=== PATIENT | female | born 1955 | race Caucasian/White ===

== ENCOUNTER 2016-12-08 08:23 | Emergency (ER) | payer OTHER ==
[~2016-12-08] VITALS: Ht 172.7 cm; Wt 81.6 kg
[~2016-12-08 08:23] MED LIST: BIOT1TAB2 PO; CALC-30 PO; CYAN50008 PO; DIAZ10TA PO; GLUC1TAB29 PO; HYDR-971 PO; LEVO100T PO; LISI10TA2 PO; MULT1CAP15 PO; ONDA4TAB10 PO; UBID10CA5 PO
[2016-12-08] MEDS: IV NORMAL SALINE 1,000ML 1,000 ML IV ONE (08:45)
--- NOTE | 2016-12-08 08:52 | PHYS DOC ---
Past History Past Medical History: Cancer, Hypertension Past Surgical History: Cancer Surgery, Other Alcohol Use: Rarely Drug Use: None Adult General HPI HPI Patient is a 61 year old F who presents with left flank pain. Patient states she woke up this morning with severe left flank pain that radiated around to her left groin. Patient plans of nausea and vomiting. Patient denies fevers. Patient denies chest pain shortness of breath. Patient states she's been told in the past she has stones or kidney however has never had a true kidney stone. Review of Systems Review of Systems GEN: Denies fevers, chills, sweats HEENT: Denies blurred vision, sore throat CV: Denies chest pain RESP: Denies shortness of air, cough GI: Left flank pain with nausea and vomiting NEURO: Denies confusion, dizziness MSK: Denies weakness, joint pain/swelling Current Medications Current Medications Current Medications Medications (Trade) Dose Ordered Sig/Cleve Start Time Stop Time Status Last Admin Dose Admin Hydromorphone HCl (Dilaudid) 1 mg 1X ONCE 12/08/16 09:00 12/08/16 09:01 Ketorolac Tromethamine (Toradol) 30 mg 1X ONCE 12/08/16 09:00 12/08/16 09:01 Ondansetron HCl (Zofran) 4 mg 1X ONCE 12/08/16 08:45 12/08/16 08:46 UNV Sodium Chloride 1,000 ml @ 1,000 mls/hr 1X ONCE 12/08/16 08:45 12/08/16 09:44 Allergies Allergies Allergies Coded Allergies Type Severity Reaction Last Updated Verified acetaminophen Allergy Unknown 09/14/15 Yes fentanyl Allergy Unknown 09/14/15 Yes oxycodone Allergy Unknown 09/14/15 Yes Physical Exam Physical Exam GEN.: Moderate distress. Alert and oriented. HEENT: Head is normocephalic, atraumatic NECK: Supple. LUNGS: CTAB. HEART: RRR, S1, S2 present. Peripheral pulses intact ABDOMEN: Soft, left flank and left CVA tenderness to palpation. Positive bowel sounds. EXTREMITIES: Without any cyanosis. NEUROLOGIC: Normal speech, normal tone PSYCHIATRIC: Normal affect, normal mood. SKIN: No ulcerations Current Patient Data Lab Results Laboratory Tests Test 12/08/16 08:45 12/08/16 09:27 12/08/16 10:10 White Blood Count 5.4 x10^3/uL Red Blood Count 4.37 x10^6/uL Hemoglobin 13.9 g/dL Hematocrit 41.5 % Mean Corpuscular Volume 95 fL Mean Corpuscular Hemoglobin 32 pg Mean Corpuscular Hemoglobin Concent 34 g/dL Red Cell Distribution Width 12.8 % Platelet Count 190 x10^3/uL Neutrophils (%) (Auto) 65 % Lymphocytes (%) (Auto) 24 % Monocytes (%) (Auto) 8 % Eosinophils (%) (Auto) 2 % Basophils (%) (Auto) 1 % Neutrophils # (Auto) 3.5 x10^3uL Lymphocytes # (Auto) 1.3 x10^3/uL Monocytes # (Auto) 0.4 x10^3/uL Eosinophils # (Auto) 0.1 x10^3/uL Basophils # (Auto) 0.1 x10^3/uL Sodium Level 141 mmol/L Potassium Level 4.1 mmol/L Chloride Level 109 mmol/L Carbon Dioxide Level 21 mmol/L Anion Gap 11 Blood Urea Nitrogen 22 mg/dL Creatinine 1.0 mg/dL Estimated GFR (Cockcroft-Gault) 56.0 Glucose Level 125 mg/dL Calcium Level 8.4 mg/dL Urine Collection Type Unknown Urine Color Yellow Urine Clarity Hazy Urine pH 8.0 Urine Specific [place] 1.020 Urine Protein Neg Urine Glucose (UA) Neg mg/dL Urine Ketones (Stick) Trace mg/dL Urine Blood Trace Urine Nitrite Neg Urine Bilirubin Neg Urine Urobilinogen Dipstick 0.2 mg/dL Urine Leukocyte Esterase Neg Urine RBC 0 /HPF Urine WBC 0 /HPF Urine Squamous Epithelial Cells Occ /LPF Urine Transitional Epithelial Cells Occ /LPF Urine Amorphous Sediment Present /HPF Urine Bacteria 0 /HPF Current Medications Medications (Trade) Dose Ordered Sig/Cleve Route PRN Reason Start Time Stop Time Status Last Admin Dose Admin Sodium Chloride 1,000 ml @ 1,000 mls/hr 1X ONCE IV 12/08/16 08:45 12/08/16 09:44 DC 12/08/16 08:45 Ketorolac Tromethamine (Toradol) 30 mg 1X ONCE IV 12/08/16 09:00 12/08/16 09:01 DC 12/08/16 09:00 Hydromorphone HCl (Dilaudid) 1 mg 1X ONCE IV 12/08/16 09:00 8/2/17 09:01 DC 12/08/16 09:00 Ondansetron HCl (Zofran) 4 mg 1X ONCE IV 12/08/16 09:00 12/08/16 09:01 DC 12/08/16 09:00 EKG EKG [] Radiology/Procedures Radiology/Procedures CT: IMPRESSION: 1. Tiny obstructing calculus in the distal left ureter at the ureterovesical junction. 2. Small bilateral intrarenal calculi. 3. Bilateral renal and hepatic cysts. 4. Mildly prominent mesenteric lymph nodes of similar size compared to the study of 09/14/2015. These are probably reactive nodes.[] Course & Med Decision Making Course & Med Decision Making Pertinent Labs and Imaging studies reviewed. (See chart for details) ED course: Patient was seen and examined in the emergency room CBC, BMP, UA, CT scan without contrast, 30 mg of Toradol, 1 mg Dilaudid, 4 mg Zofran, 1 L normal saline was ordered 1030: On reexamination patient's pain was a 2 out of 10 and feeling much better , patient was updated on CT findings and told that if the pain does not resolve within 3 days to follow-up with PCP and she may need to see urologist. MDM: After reviewing the chart, CC/HPI/PMH, physical exam, [lab results], [ radiological results], I believe the patient has a small left ureteral calculus that is not septic in patient is stable be discharged home with oral pain medications and follow-up as an outpatient. Additional verbal discharge instructions were provided to the patient and that if symptoms get worse or any new symptoms arise that are worrisome to the patient she is to return to the emergency room immediately [] Dragon Disclaimer Dragon Disclaimer This chart was dictated in whole or in part using Voice Recognition software in a busy, high-work load, and often noisy Emergency Department environment. It may contain unintended and wholly unrecognized errors or omissions. Departure Departure: Impression: Primary Impression: Ureteral calculus, left Disposition: HOME, SELF-CARE Condition: IMPROVED Referrals: SIN MORTENSEN MD (PCP) Patient Instructions: Kidney Stones Additional Instructions: Please follow up with her family doctor next one to 2 days Scripts Ondansetron (ZOFRAN ODT) 4 Mg Tab.rapdis 1 TAB SL Q8HRS, #10 TAB Prov: JOSHUA FLOWERS DO 12/08/16 Tamsulosin Hcl (FLOMAX) 0.4 Mg Cap.er.24h 1 CAP PO DAILY for 5 Days, #5 CAP 11 Refills Prov: JOSHUA FLOWERS DO 12/08/16 Hydrocodone Bit/Acetaminophen (NORCO 5-325 TABLET) 1 Each Tablet 1-2 TAB PO Q4-6HRS Y for PAIN for 3 Days, #20 TAB Prov: JOSHUA FLOWERS DO 12/08/16 JOSHUA FLOWERS DO Dec 08, 2016 08:52
[2016-12-08] MEDS: KETOROLAC 30 MG/ML VIAL. IV ONE (09:00)
[2016-12-08] MEDS: HYDROmorphone PF 1 MG/ML DISP.SYRIN IV ONE ×2 (09:00→11:14)
[2016-12-08] MEDS: ONDANSETRON PF 4 MG/2 ML VIAL. IV ONE (09:00)
[2016-12-08 09:08] LABS: BASO # 0.1 x10^3/uL (0.0-0.2); BASO % 1 % (0-3); EOS # 0.1 x10^3/uL (0.0-0.7); EOS % 2 % (0-3); HEMATOCRIT 41.5 % (36.0-47.0); HEMOGLOBIN 13.9 g/dL (12.0-15.5); LYMPH # 1.3 x10^3/uL (1.0-4.8); LYMPH % 24 % (24-48); MEAN CORPUSCULAR HEMOGLOBIN 32 pg (25-35); MEAN CORPUSCULAR HGB CONC 34 g/dL (31-37); MEAN CORPUSCULAR VOLUME 95 fL (79-100); MONO # 0.4 x10^3/uL (0.0-1.1); MONO % 8 % (0-9); NEUT # 3.5 x10^3uL (1.8-7.7); NEUT % 65 % (31-73); PLATELET COUNT 190 x10^3/uL (140-400); RED BLOOD COUNT 4.37 x10^6/uL (3.50-5.40); RED CELL DISTRIBUTION WIDTH 12.8 % (11.5-14.5); WHITE BLOOD COUNT 5.4 x10^3/uL (4.0-11.0)
[2016-12-08 09:45] LABS: CALCIUM 8.4 mg/dL (8.5-10.1); POTASSIUM 4.1 mmol/L (3.5-5.1)
--- NOTE | 2016-12-08 09:48 | RAD ---
CT of the abdomen and pelvis without contrast, 12/08/2016: History: Left-sided flank pain. Noncontrast scans were obtained through the urinary tract utilizing the renal stone protocol. Comparison is made to a study from 09/14/2015. A couple of small intrarenal calculi are identified. The largest of which measures approximately 4 mm. A couple of faint intrarenal calculi are present on the right. There is a 2 cm cyst anteriorly in the right kidney. There are cystic areas centrally in both kidneys probably predominantly due to parapelvic renal cysts. The left ureter is mildly prominent. There is a 2 mm opacity along the posterior wall of the urinary bladder on the left compatible with a calculus lodged in the intramural segment of the distal left ureter. The right ureter is unremarkable. Numerous additional lower pelvic calcifications compatible with phleboliths. There is mild bibasilar atelectasis. Several small unchanged low density lesions in the liver are compatible with cysts. The gallbladder is unremarkable. No pancreatic abnormality is seen. The spleen is of normal size. There is mild aortoiliac calcific plaquing. No retroperitoneal, pelvic or inguinal adenopathy is seen. There are mildly prominent mesenteric lymph nodes. The largest of these lies on the left and measures 10 mm in short axis dimension. Similar findings were present on the previous study. Their stability suggests a benign etiology. The bowel loops are not dilated. The appendix is visualized and shows no abnormality. No free fluid or free air is evident in the abdomen or pelvis. There are mild scattered degenerative changes in the spine. IMPRESSION: 1. Tiny obstructing calculus in the distal left ureter at the ureterovesical junction. 2. Small bilateral intrarenal calculi. 3. Bilateral renal and hepatic cysts. 4. Mildly prominent mesenteric lymph nodes of similar size compared to the study of 09/14/2015. These are probably reactive nodes. PQRS Compliance Statement: One or more of the following individualized dose reduction techniques were utilized for this examination: 1. Automated exposure control 2. Adjustment of the mA and/or kV according to patient size 3. Use of iterative reconstruction technique
[2016-12-08] MEDS ORDERED: TAMS0.4C97 PO (10:15)
[2016-12-08] MEDS ORDERED: ONDA4TAB10 SL (10:15)
[2016-12-08] MEDS ORDERED: HYDR-971 PO (10:15)
[2016-12-08 10:30] LABS: AMORPHOUS SEDIMENT,UR PRESENT /HPF; BACTERIA,URINE 0 /HPF (0-FEW); BILIRUBIN,URINE NEG (NEG); CLARITY,URINE HAZY; COLOR,URINE YELLOW; GLUCOSE,URINE NEG (NEG); NITRITE,URINE NEG (NEG); RBC,URINE 0 /HPF (0-2); SQUAMOUS EPITHELIAL CELL,UR OCC /LPF; UROBILINOGEN,URINE 0.2 mg/dL (0.2 mg/dL); WBC,URINE 0 /HPF (0-4)
[2016-12-08] MEDS: ONDANSETRON ODT 4 MG TAB.RAPDIS PO ONE (11:33)
[2016-12-08 11:50] VITALS: BP 136/83
== END 2016-12-08 11:50 | disposition home or self-care (01) ==
LOC: ER 08:23
DX: N20.1 Calculus of ureter (principal); I10 Essential (primary) hypertension; Z88.6 Allergy status to analgesic agent; Z88.4 Allergy status to anesthetic agent; Z88.5 Allergy status to narcotic agent
CPT/HCPCS: 36415; 74176; 80048; 81001; 85027; 96361; 96374; 96375; 96376; 99285; J1170; J1885; J2405; Q0162; J7030

== ENCOUNTER 2016-12-08 18:48 | Inpatient (IN) | payer OTHER ==
[~2016-12-08] VITALS: Ht 172.7 cm; Wt 90.3 kg
[~2016-12-08 18:48] MED LIST changes: +ONDA4TAB10 SL; +TAMS0.4C97 PO
[2016-12-08] MEDS ORDERED: IV NORMAL SALINE 1,000ML 1,000 ML ONE (19:04)
[2016-12-08] MEDS ORDERED: HYDROmorphone PF 1 MG/ML DISP.SYRIN ONE (19:04)
[2016-12-08] MEDS ORDERED: IV NORMAL SALINE 1,000ML 1,000 ML IV ONE (19:15)
[2016-12-08] MEDS ORDERED: HYDROmorphone PF 1 MG/ML DISP.SYRIN IV/SQ PRN (19:15)
[2016-12-08] MEDS ORDERED: LORazepam 2 MG/ML VIAL IV ONE (19:20)
[2016-12-08] MEDS ORDERED: ONDANSETRON PF 4 MG/2 ML VIAL. IV ONE (19:20)
[2016-12-08 20:00] VITALS: BP 176/107
[2016-12-08] MEDS ORDERED: MORPHINE SULFATE 4 MG/ML DISP.SYRIN. IV PRN (20:00)
[2016-12-08 20:01] LABS: BASO # 0.1 x10^3/uL (0.0-0.2); BASO % 1 % (0-3); EOS # 0.1 x10^3/uL (0.0-0.7); EOS % 1 % (0-3); HEMATOCRIT 40.7 % (36.0-47.0); HEMOGLOBIN 13.8 g/dL (12.0-15.5); LYMPH # 1.3 x10^3/uL (1.0-4.8); LYMPH % 14 % (24-48); MEAN CORPUSCULAR HEMOGLOBIN 32 pg (25-35); MEAN CORPUSCULAR HGB CONC 34 g/dL (31-37); MEAN CORPUSCULAR VOLUME 94 fL (79-100); MONO # 0.9 x10^3/uL (0.0-1.1); MONO % 10 % (0-9); NEUT # 6.7 x10^3uL (1.8-7.7); NEUT % 74 % (31-73); PLATELET COUNT 181 x10^3/uL (140-400); RED BLOOD COUNT 4.32 x10^6/uL (3.50-5.40); RED CELL DISTRIBUTION WIDTH 12.8 % (11.5-14.5)
[2016-12-08] MEDS: ONDANSETRON PF 4 MG/2 ML VIAL. IV PRN (20:05)
[2016-12-08 20:08] LABS: ALBUMIN 3.6 g/dL (3.4-5.0); ALBUMIN/GLOBULIN RATIO 1.1 (1.0-1.7); CALCIUM 8.9 mg/dL (8.5-10.1); CREATININE 1.3 mg/dL (0.6-1.0); GFR 41.4; POTASSIUM 4.3 mmol/L (3.5-5.1); TOTAL BILIRUBIN 0.4 mg/dL (0.2-1.0)
[2016-12-08] MEDS: IV NORMAL SALINE 1,000ML 1,000 ML IV SCH (20:21)
--- NOTE | 2016-12-08 20:35 | PHYS DOC ---
Past History Past Medical History: Cancer, Hypertension Past Surgical History: Cancer Surgery, Other Alcohol Use: Rarely Drug Use: None Adult General Chief Complaint Chief Complaint: FLANK PAIN HPI HPI Patient is a 61 year old female who presents with left flank pain & vomiting. She was here this morning & diagnosed with 2 mm distal ureteral stone, no UTI, no hydronephrosis, normal creatinine & WBC. She was discharged home with norco , zofran, flomax. Since that time more than 3 episodes of vomiting not tolerating oral intake, continued severe pain. She denies fevers or chills, hematemesis, diarrhea or constipation, dysuria. No previous kidney stones. Review of Systems Review of Systems Constitutional: Denies fever or chills HENT: Denies nasal congestion or sore throat Respiratory: Denies cough or shortness of breath Cardiovascular: Denies chest pain or edema GI: Reports abdominal pain, nausea, vomiting, denies diarrhea : Denies dysuria or hematuria Musculoskeletal: Reports flank pain Integument: Denies rash or skin lesions Neurologic: Denies headache Current Medications Current Medications Current Medications Medications (Trade) Dose Ordered Sig/Cleve Start Time Stop Time Status Last Admin Dose Admin Hydromorphone HCl (Dilaudid) 1 mg PRN Q15MIN PRN 12/08/16 19:15 12/09/16 19:14 12/08/16 19:11 1 MG Lorazepam (Ativan) 1 mg 1X ONCE 12/08/16 19:20 12/08/16 19:21 DC Ondansetron HCl (Zofran) 4 mg 1X ONCE 12/08/16 19:20 12/08/16 19:21 DC 12/08/16 19:20 4 MG Sodium Chloride 1,000 ml @ 1,000 mls/hr 1X ONCE 12/08/16 19:15 12/08/16 20:14 DC 12/08/16 19:11 1,000 MLS/HR Allergies Allergies Allergies Coded Allergies Type Severity Reaction Last Updated Verified acetaminophen Allergy Unknown 09/14/15 Yes fentanyl Allergy Unknown 09/14/15 Yes oxycodone Allergy Unknown 09/14/15 Yes Physical Exam Physical Exam Constitutional: Well developed, well nourished, appears to be in pain, non- toxic appearance. HENT: Normocephalic, atraumatic, bilateral external ears normal, oropharynx moist, nose normal. Eyes: conjunctiva normal, no discharge. Neck: supple, no stridor. Cardiovascular: RRR, no murmurs, no edema. Lungs & Thorax: LCTAB, no wheezing, no respiratory distress. Abdomen: soft, LLQ & mid abdominal tenderness without rebound/guarding, no masses/pulsatile masses, nondistended. Skin: Warm, dry, no erythema, no rash. Back: +LCVA tenderness Extremities: No tenderness, no edema. Neurologic: Alert and oriented X 3, no focal deficits noted. Psychologic: Affect normal, judgement normal, mood normal. Current Patient Data Vital Signs Vital Signs Date Time Temp Pulse Resp B/P (MAP) Pulse Ox O2 Delivery O2 Flow Rate FiO2 12/08/16 20:05 22 99 Room Air 12/08/16 18:50 98.2 84 Lab Results Laboratory Tests Test 12/08/16 19:08 White Blood Count 9.0 x10^3/uL (4.0-11.0) # Red Blood Count 4.32 x10^6/uL (3.50-5.40) Hemoglobin 13.8 g/dL (12.0-15.5) Hematocrit 40.7 % (36.0-47.0) Mean Corpuscular Volume 94 fL (79-100) Mean Corpuscular Hemoglobin 32 pg (25-35) Mean Corpuscular Hemoglobin Concent 34 g/dL (31-37) Red Cell Distribution Width 12.8 % (11.5-14.5) Platelet Count 181 x10^3/uL (140-400) Neutrophils (%) (Auto) 74 % (31-73) H Lymphocytes (%) (Auto) 14 % (24-48) L Monocytes (%) (Auto) 10 % (0-9) H Eosinophils (%) (Auto) 1 % (0-3) Basophils (%) (Auto) 1 % (0-3) Neutrophils # (Auto) 6.7 x10^3uL (1.8-7.7) Lymphocytes # (Auto) 1.3 x10^3/uL (1.0-4.8) Monocytes # (Auto) 0.9 x10^3/uL (0.0-1.1) Eosinophils # (Auto) 0.1 x10^3/uL (0.0-0.7) Basophils # (Auto) 0.1 x10^3/uL (0.0-0.2) Sodium Level 138 mmol/L (136-145) Potassium Level 4.3 mmol/L (3.5-5.1) Chloride Level 105 mmol/L (98-107) Carbon Dioxide Level 24 mmol/L (21-32) Anion Gap 9 (6-14) Blood Urea Nitrogen 24 mg/dL (7-20) H Creatinine 1.3 mg/dL (0.6-1.0) H Estimated GFR (Cockcroft-Gault) 41.4 BUN/Creatinine Ratio 18 (6-20) Glucose Level 112 mg/dL (70-99) H Calcium Level 8.9 mg/dL (8.5-10.1) Total Bilirubin 0.4 mg/dL (0.2-1.0) Aspartate Amino Transferase (AST) 22 U/L (15-37) Alanine Aminotransferase (ALT) 19 U/L (14-59) Alkaline Phosphatase 77 U/L (46-116) Total Protein 7.0 g/dL (6.4-8.2) Albumin 3.6 g/dL (3.4-5.0) Albumin/Globulin Ratio 1.1 (1.0-1.7) EKG EKG [] Radiology/Procedures Radiology/Procedures CT obtained during previous visit today PROCEDURE: CT ABDOMEN PELVIS WO CONTRAST CT of the abdomen and pelvis without contrast, 12/08/2016: History: Left-sided flank pain. Noncontrast scans were obtained through the urinary tract utilizing the renal stone protocol. Comparison is made to a study from 09/14/2015. A couple of small intrarenal calculi are identified. The largest of which measures approximately 4 mm. A couple of faint intrarenal calculi are present on the right. There is a 2 cm cyst anteriorly in the right kidney. There are cystic areas centrally in both kidneys probably predominantly due to parapelvic renal cysts. The left ureter is mildly prominent. There is a 2 mm opacity along the posterior wall of the urinary bladder on the left compatible with a calculus lodged in the intramural segment of the distal left ureter. The right ureter is unremarkable. Numerous additional lower pelvic calcifications compatible with phleboliths. There is mild bibasilar atelectasis. Several small unchanged low density lesions in the liver are compatible with cysts. The gallbladder is unremarkable. No pancreatic abnormality is seen. The spleen is of normal size. There is mild aortoiliac calcific plaquing. No retroperitoneal, pelvic or inguinal adenopathy is seen. There are mildly prominent mesenteric lymph nodes. The largest of these lies on the left and measures 10 mm in short axis dimension. Similar findings were present on the previous study. Their stability suggests a benign etiology. The bowel loops are not dilated. The appendix is visualized and shows no abnormality. No free fluid or free air is evident in the abdomen or pelvis. There are mild scattered degenerative changes in the spine. IMPRESSION: 1. Tiny obstructing calculus in the distal left ureter at the ureterovesical junction. 2. Small bilateral intrarenal calculi. 3. Bilateral renal and hepatic cysts. 4. Mildly prominent mesenteric lymph nodes of similar size compared to the study of 09/14/2015. These are probably reactive nodes. PQRS Compliance Statement: One or more of the following individualized dose reduction techniques were utilized for this examination: 1. Automated exposure control 2. Adjustment of the mA and/or kV according to patient size 3. Use of iterative reconstruction technique DICTATED AND SIGNED BY: LUCAS CISSE MD DATE: 12/08/16 0927[] Course & Med Decision Making Course & Med Decision Making Pertinent Labs and Imaging studies reviewed. (See chart for details) The patient presents with persistent pain and vomiting with known ureteral colic. Gave IV fluids, Zofran, pain medication. Her pain was persistent and severe. She did not want to go home and had already failed outpatient management. Discussed with Dr. Gonzales. He and I both felt that there was a reasonable possibility that the patient would pass the stone on her own with supportive management. He agreed to accept the patient for IV fluids, pain medication, antiemetics, Flomax. He and the patient understand possibility of need for transfer at a later time. She will not be able to receive urology consultation here at [facility]. She agrees with plan of care and is being admitted in stable condition. [] Dragon Disclaimer Dragon Disclaimer This chart was dictated in whole or in part using Voice Recognition software in a busy, high-work load, and often noisy Emergency Department environment. It may contain unintended and wholly unrecognized errors or omissions. Departure Departure: Impression: Primary Impression: Ureteral colic Additional Impression: Nausea & vomiting Disposition: 09 ADMITTED INPATIENT Admitting Physician: Claudine Gonzales Condition: STABLE Referrals: SIN MORTENSEN MD (PCP) Problem Qualifiers TIMO GAVIN MD Dec 08, 2016 20:35
[2016-12-08] MEDS ORDERED: PROMETHAZINE 12.5 MG in IV NORMAL SALINE 50ML 50 ML IV PRN (20:45)
[2016-12-08] MEDS ORDERED: PROMETHAZINE 25 MG/ML VIAL IV ONE (20:46)
[2016-12-08] MEDS ORDERED: IV NORMAL SALINE 50ML 50 ML ONE (20:46)
[2016-12-08] MEDS: HYDROmorphone PF 2 MG/ML VIAL IV PRN (20:57)
[2016-12-08 21:00] VITALS: BP 144/91
[2016-12-09 00:30] VITALS: BP 148/84
[2016-12-09] MEDS: HYDROmorphone PF 2 MG/ML VIAL IV PRN ×5 (01:05→19:05)
--- NOTE | 2016-12-09 01:33 | ACF ---
Admission Criteria Forms RENAL COLIC AND KIDNEY STONES Clinical Indications for Admission to Inpatient Care ( Place 'X' for any and all applicable criteria): Admission is indicated for ANY ONE of the following (1)(2)(3)(4): [X]I. Inpatient admission required rather than observation care (Also use Renal Colic and Kidney Stones: Observation Care Criteria as appropriate) because of ANY ONE of the following: [X]a) Severe pain requiring acute inpatient management [ ]b) Urinary tract infection identified [ ]c) Vomiting that is severe or persistent [ ]d) IV fluid required rather than oral rehydration to replace significant ongoing (eg, for greater than 24 hours) losses (greater than 200 mL/hr or 3 L/m2 per day) [ ]e) Percutaneous or open drainage (eg, abscess, biliary tract) procedures [ ]f) Other condition, treatment or monitoring requiring inpatient admission [ ]II. Impending acute renal failure [ ]III. Bilateral obstruction [ ]IV. Single kidney with obstruction [ ]V. Transplanted kidney with obstruction [ ]. Possible open surgical procedure needed (eg, pyonephrosis, stone removal not amendable to other means) [ ]VII. Hemodynamic instability Extended stay beyond goal length of stay may be needed for(2)(3)(31): [ ]a) Failed initial stone removal (32) [ ]b) Pyonephrosis [ ]c) Obstructive uropathy with urinary tract infection [ ]d) Procedure complications [ ]e) Comorbidities (22) The original [employer] content created by [employer] has been revised. The portions of the content which have been revised are identified through the use of italic text or in bold, and [facility] has neither reviewed nor approved the modified material. All other unmodified content is copyright [employer]. Please see references footnoted in the original [employer] edition 2016 Admission Criteria Met?: Yes KALANI COOK Dec 09, 2016 01:33
[2016-12-09] MEDS: diphenhydrAMINE HCL 25 MG CAPSULE PO PRN ×2 (03:58→07:56)
[2016-12-09] MEDS: IV NORMAL SALINE 1,000ML 1,000 ML IV SCH ×2 (03:58→12:00)
[2016-12-09 04:00] VITALS: BP 138/74
[2016-12-09 05:54] LABS: BASO % 0 % (0-3); EOS % 0 % (0-3); HEMATOCRIT 39.8 % (36.0-47.0); HEMOGLOBIN 12.9 g/dL (12.0-15.5); LYMPH # 1.5 x10^3/uL (1.0-4.8); LYMPH % 18 % (24-48); MEAN CORPUSCULAR HEMOGLOBIN 32 pg (25-35); MEAN CORPUSCULAR HGB CONC 32 g/dL (31-37); MEAN CORPUSCULAR VOLUME 100 fL (79-100); MONO % 12 % (0-9); NEUT % 70 % (31-73); PLATELET COUNT 143 x10^3/uL (140-400); RED BLOOD COUNT 3.99 x10^6/uL (3.50-5.40); RED CELL DISTRIBUTION WIDTH 13.3 % (11.5-14.5); WHITE BLOOD COUNT 8.5 x10^3/uL (4.0-11.0)
[2016-12-09 06:03] LABS: CALCIUM 7.9 mg/dL (8.5-10.1); CREATININE 1.4 mg/dL (0.6-1.0); POTASSIUM 4.6 mmol/L (3.5-5.1)
[2016-12-09] MEDS: LEVOTHYROXINE 100 MCG TABLET PO SCH (07:50)
[2016-12-09] MEDS: TAMSULOSIN 0.4 MG CAP.ER.24H. PO SCH (07:51)
[2016-12-09] MEDS: ONDANSETRON PF 4 MG/2 ML VIAL. IV PRN ×2 (08:39→15:17)
[2016-12-09] MEDS ORDERED: LISINOPRIL 10 MG TABLET PO SCH (09:00)
[2016-12-09 11:11] VITALS: BP 119/72
[2016-12-09] MEDS ORDERED: diphenhydrAMINE 50 MG/ML VIAL IVP PRN (12:30)
[2016-12-09 15:30] VITALS: BP 158/93
--- NOTE | 2016-12-09 16:10 | RAD ---
CT abdomen and pelvis without contrast 12/09/2016 Clinical indication: Evaluate for transit of known stone. Comparison: CT abdomen and pelvis 12/08/2016 Technique: Multiple CT noncontrast images of the abdomen and pelvis were obtained according to standard protocol. Coronal and sagittal reformations were obtained. PQRS Compliance Statement: One or more of the following individualized dose reduction techniques were utilized for this examination: 1. Automated exposure control 2. Adjustment of the mA and/or kV according to patient size 3. Use of iterative reconstruction technique Abdomen and pelvis findings: There is an 8 mm noncalcified nodule in the left lung base, unchanged since November 11, 2012 considered benign. Stable 4 mm noncalcified nodule in the lingula unchanged since 11/11/2012, considered benign. Minimal dependent atelectasis in the visualized lung bases. Heart size is normal. Evaluation of the solid abdominopelvic viscera, lymphadenopathy and vasculature is limited in absence of intravenous contrast. There is stable bilobar hepatic hypodensities, incompletely evaluated without intervenous contrast. Unenhanced contours of the spleen, gallbladder and pancreas are grossly unremarkable. There is stable positioning and size of 4 mm obstructive stone in the left ureterovesicular junction with resultant mild/moderate upstream hydroureteronephrosis with left periureteral/perinephric stranding and asymmetric enlargement of the left kidney. No abnormal left perinephric loculated fluid collection. There is a stable nonobstructive stone in the superior pole of the left kidney measuring 4 mm. There is a 2 mm nonobstructive stone in the superior pole of the right kidney. No right ureterolithiasis or right hydroureteronephrosis. There is a stable anterior interpolar right renal cyst. Mildly distended and unopacified urinary bladder is otherwise unremarkable. Small and large bowel loops are normal in caliber without obstruction. Appendix is normal in appearance. There is stable mild mesenteric lymphadenopathy, not significant change since November 11, 2012. Mildly distended unopacified urinary bladder within normal limits. Prior hysterectomy with the vaginal cuff within normal limits. No iliac or inguinal lymphadenopathy. There is a stable tiny calcification in the para midline mons pubis, likely dystrophic. No destructive osseous lesions. There is diminutive left anterior abdominal wall musculature with adjacent surgical clips which may be due to prior flap reconstruction. Impression: 1. Stable obstructive 4 mm left UVJ calculus with moderate upstream hydroureteronephrosis. 2. Unchanged left periureteral and perinephric stranding which may be reactive from stone, however ascending infection cannot be excluded. 3. A few additional bilateral nonobstructive nephrolithiasis. 4. Stable mild mesenteric lymphadenopathy, unchanged since 2013, likely reactive.
--- NOTE | 2016-12-09 16:15 | HP ---
ADMIT DATE: 12/09/2016 HISTORY OF PRESENT ILLNESS: The patient is a 61-year-old female patient who came to the Emergency Room complaining of left flank pain and vomiting. She was seen in the morning and diagnosed with 2 mm distal ureteral stone with no evidence of urinary tract infection, no hydronephrosis, normal creatinine and normal white cell count. She was discharged home on Ruffin, Zofran, and Flomax and since that time, more than 3 episodes of vomiting and not tolerating oral intake, continued severe pain. She denied any fever, chills, hematemesis, diarrhea or constipation, dysuria and no history of previous kidney stones. Because of the recurrence of pain, the patient was admitted to continue with IV fluid, pain medication and Flomax and to follow her strain all her urine to see whether she has passed the stone or not. PAST MEDICAL HISTORY: Significant for breast cancer in 1999, treated with mastectomy and radiation treatment. Thyroid cancer treated with thyroidectomy in 2004. She is also known to have hypertension. PAST SURGICAL HISTORY: Significant for right mastectomy, thyroidectomy, foot surgery and diskectomy. ALLERGIES: She is ALLERGIC TO TYLENOL, FENTANYL, AND OXYCODONE. MEDICATIONS: She is currently on following medications: She is on biotin 1 mg tablet once a day, calcium carbonate with vitamin D3 one tablet daily, cyanocobalamin 5000 mcg once a day, glucosamine chondroitin 1 tablet once a day, hydrocodone/APAP 5/325 mg one to two tablets every 6 hours, levothyroxine sodium 100 mcg once a day, lisinopril 10 mg once a day, multivitamin 1 tablet once a day, ondansetron 4 mg once a day, tamsulosin 0.4 mg once a day and CoQ10 10 mg once a day. FAMILY HISTORY: She has 3 sisters, 1 older and has stage IV colon cancer that she has survived. She 2 sisters younger one of them has been diagnosed with brain aneurysm 15 years ago. Her father is alive at age of 92 and has kidney stones. Her mother is alive at age 84 and she is known to have hypertension. SOCIAL HISTORY: She is , has 2 sons, her younger son who is 32 years old, has stones. She is a retired teacher. She does not smoke, drink alcohol or use any recreational drugs. REVIEW OF SYSTEMS: The patient denied any blurring of vision, cataract, glaucoma or macular degeneration. Denied any earache, tinnitus or sensorineural deafness. Denied any nosebleeds, stuffy nose or postnasal drip. Denied any sore throat, sore tongue, toothache, hoarseness of voice or difficulty swallowing. Did have multiple episodes of nausea, vomiting yesterday, none today. No diarrhea or constipation. No hematemesis, melena, hematochezia. Denied any dysuria, frequency or hematuria. Denied any chest pain, shortness of breath, orthopnea or paroxysmal nocturnal dyspnea. Denied any cough, phlegm or hemoptysis. Denied any chills, rigors or fever. PHYSICAL EXAMINATION: GENERAL: When I examined her on arrival to the Emergency Room, she was clearly pale, but no jaundice, cyanosis or thyromegaly. No jugular venous distention. No limb edema. VITAL SIGNS: Her heart rate was 84, blood pressure was 176/107, temperature was 98, respiratory rate 28, and oxygen saturation was 97% on room air. HEAD, EYES, EARS, NOSE and THROAT: Showed normocephalic, atraumatic. NECK: Supple. HEART: Showed normal first and second heart sounds with no gallop, rub or murmur. CHEST: Clear to auscultation. No crepitation or rhonchi. ABDOMEN: Distended, soft, nontender. No guarding or rigidity. No organomegaly. Hernial orifices intact. Bowel sounds normal. NEUROLOGIC: She was awake, alert, responding appropriately. Cranial nerves intact. EXTREMITIES: She moves extremities without difficulty. She ambulates without assistance or assistive devices. LABORATORY DATA: Showed a white cell count 9000, hemoglobin 13.8, hematocrit 40.7, MCV 94 and platelet count of 181,000 with normal manual differential. Her chemistry showed a serum sodium 138, potassium 4.3, chloride 105, bicarbonate 24, anion gap of 9, BUN 24, creatinine 1.3, estimated GFR was 41 mL per minute. Her glucose was 112, calcium was 8.9. Total bilirubin, AST, ALT, alkaline phosphatase were normal. Total protein 7, albumin was 3.6. The CT scan of the abdomen and pelvis without contrast showed that she has tiny obstructing calculus in the distal left ureter at ureterovesical junction. There are small bilateral intrarenal calculi, bilateral renal hepatic cyst, mildly prominent mesenteric lymph nodes of similar size compared to the study on 09/14/2015. These are probably reactive in nature. ASSESSMENT AND PLAN: In summary, this is a 61-year-old female patient who came in with left flank pain with nausea and vomiting. CT scan showed that she has tiny obstructing calculus in the distal left ureter at the ureterovesical junction, small bilateral intrarenal calculi and bilateral renal hepatic cysts. She was admitted and was started on IV fluid. She is also continued on her hydromorphone as well as promethazine and tamsulosin. We will obviously follow her lab work and repeat her CT scan and strain all her urine and decide on further management. SAJAN WATERMAN MD DR: ANGEL/elizabet JOB#: [id number] / [id number]
[2016-12-09 19:32] VITALS: BP 143/87
--- NOTE | 2016-12-09 21:58 | PN ---
DATE: 12/09/2016 SUBJECTIVE: The patient is a 61-year-old female patient who was admitted yesterday with left flank pain and nausea, and a CT scan showed that she has a 2 mm obstructing stone in the distal left ureter at ureterovesical junction. She was admitted and started on IV fluid, IV pain medication, antiemetic as well as Flomax. When I saw her this afternoon, she was resting slightly propped up in bed, in no apparent distress. On questioning her, she denied any complaint. In particular, she has no further episodes of nausea, vomiting, no flank pain. PHYSICAL EXAMINATION: GENERAL: When I examined her, she was slightly pale. No jaundice, cyanosis, or thyromegaly. No jugular venous distension. No limb edema. VITAL SIGNS: Her heart rate was 65, blood pressure 119/72, temperature was 98.3, respiratory rate was 18, and oxygen saturation was 97%. HEAD, EYES, EARS, NOSE, AND THROAT: Showed normocephalic, atraumatic. NECK: Supple. HEART: Showed normal first and second heart sounds. No gallop, rub, or murmur. CHEST: Clear to auscultation. No crepitation or rhonchi. ABDOMEN: Distended, soft, nontender. No guarding or rigidity. No organomegaly. Hernial orifices intact. Bowel sounds normal. NEUROLOGIC: She is awake, alert, responding appropriately. Cranial nerves intact. She moves extremities without difficulty. She ambulates without assistance or assistive devices. Her intake over the last 24 hours was 2470, output was 1400. LABORATORY DATA: Her chemistry this morning showed that her serum sodium 142, potassium 4.6, chloride 110, bicarbonate 21, anion gap of 11, BUN 21, creatinine 1.4, estimated GFR was 58 mL per minute. Her glucose 107, calcium was 7.9. Her white cell count was 8500, hemoglobin 13, hematocrit 39, MCV 100, and platelet count of 143,000. ASSESSMENT: In summary, this is a 61-year-old female patient who was admitted with left flank pain and nausea, found to have a 2 mm obstructing stone in the left distal ureter at the ureterovesicular junction. Her creatinine is rising. She was seen about a month ago at Clinic and her serum creatinine at that time was 0.69, yesterday creatinine was 1.3 and today it was 1.4, probably combination of dehydration, scant bouts of nausea and vomiting as well as continuation of her lisinopril. She has other medical problems including hypertension, previous history of breast cancer and thyroid cancer. PLAN: My plan is to hold lisinopril and start her on amlodipine 5 mg once a day. We will repeat all her lab work tomorrow including intact PTH and serum phosphorus to rule out the possibility of primary hyperparathyroidism as the cause of her stones. I will repeat CT scan without contrast to make sure that the stone has passed and we will decide on further management accordingly. SAJAN WATERMAN MD DR: ANGEL/elizabet JOB#: [id number] / [id number]
[2016-12-09] MEDS ORDERED: ACETAMINOPHEN 325 MG TABLET PO ONE (22:59)
[2016-12-09] MEDS ORDERED: ACETAMINOPHEN 325 MG TABLET PO PRN (23:00)
[2016-12-10] MEDS: IV NORMAL SALINE 1,000ML 1,000 ML IV SCH ×2 (04:04→10:30)
[2016-12-10 05:55] VITALS: BP 164/93
[2016-12-10 06:07] LABS: HEMATOCRIT 36.9 % (36.0-47.0); HEMOGLOBIN 12.4 g/dL (12.0-15.5); RED BLOOD COUNT 3.87 x10^6/uL (3.50-5.40); RED CELL DISTRIBUTION WIDTH 12.8 % (11.5-14.5); WHITE BLOOD COUNT 5.9 x10^3/uL (4.0-11.0)
[2016-12-10 06:12] LABS: CALCIUM 8.2 mg/dL (8.5-10.1); CREATININE 1.1 mg/dL (0.6-1.0); GFR 50.2; PHOSPHORUS 3.4 mg/dL (2.6-4.7)
[2016-12-10] MEDS: LEVOTHYROXINE 100 MCG TABLET PO SCH (07:44)
[2016-12-10] MEDS ORDERED: amLODIPine BESYLATE 5 MG TABLET PO SCH (09:00)
[2016-12-10] MEDS: TAMSULOSIN 0.4 MG CAP.ER.24H. PO SCH (09:00)
[2016-12-10] MEDS ORDERED: DOCUSATE SODIUM 100 MG CAPSULE PO ONE (14:00)
[2016-12-10 16:11] VITALS: BP 160/78
--- NOTE | 2016-12-10 17:44 | RAD ---
CT abdomen and pelvis without contrast 12/10/2016 Clinical indication: Evaluate UVJ calculus. Comparison: CT abdomen and pelvis without 12/09/2016 Technique: Multiple CT images of the abdomen and pelvis were obtained without contrast according to standard protocol. PQRS Compliance Statement: One or more of the following individualized dose reduction techniques were utilized for this examination: 1. Automated exposure control 2. Adjustment of the mA and/or kV according to patient size 3. Use of iterative reconstruction technique Findings: Abdomen and pelvis: Heart size is normal. Redemonstration of left lung base noncalcified nodule, unchanged since 11/11/2012 and consider benign. Evaluation of the solid abdominal pelvic viscera, lymphadenopathy and vasculature is limited the absence of intravenous contrast. Redemonstration of hepatic hypodensities. Unenhanced contours of the spleen, gallbladder and pancreas are grossly unremarkable. Nonvisualization of previously noted left UVJ calculus. There are a few additional bilateral 2 to 3 mm nonobstructive renal renal calculi. There is a stable anterior right interpolar renal cystitis and bilateral renal sinus cysts. Unchanged mild left hydroureteronephrosis with urothelial thickening and periureteral/perinephric stranding. Mildly distended and unopacified urinary bladder is otherwise unremarkable. No bowel obstruction. Stable mild mesenteric lymphadenopathy, unchanged since November 11, 2012 examination. Prior hysterectomy with the vaginal cuff within normal limits. No definite pelvic lymphadenopathy. No abdominal free fluid. Unchanged paramidline mons pubis calcification, likely dystrophic. Diminutive left anterior abdominal wall musculature with adjacent surgical clips and may be due to prior flap reconstruction. Impression: 1. Nonvisualization of previously noted left UVJ calculus. Unchanged mild upstream left hydroureteronephrosis and periureteral /perinephric stranding. 2. A few bilateral nonobstructive nephrolithiasis. 3. Stable mild mesenteric lymphadenopathy, unchanged since 2012.
[2016-12-10 18:08] LABS: CALCIUM PTH 8.4 mg/dL (8.7-10.3); CREATININE PTH 0.95 mg/dL (0.57-1.00); PTH INTACT 35 pg/mL (15-65)
--- NOTE | 2016-12-10 21:58 | DS ---
DATE OF DISCHARGE: 12/10/2016 HOSPITAL COURSE: The patient was admitted with left flank pain and nausea and vomiting. She was investigated in the Emergency Room was found to have a tiny obstructing calculus in the distal left ureter at the ureteropelvic junction. She was started on IV fluid, pain medication as well as Flomax. Her lab work showed that her creatinine is arising and has risen from 1.3-1.4. I contacted her primary care physician in fact a few months ago her serum creatinine was only 0.63 mg/dL. We did repeat CT scan yesterday, which showed that she has stable positioning and size of 4 mm obstructing stone in the left ureterovesical junction resultant [id number] upstream hydroureteronephrosis and left periureteral and perinephric stranding and symmetric enlargement of the left kidney. No abnormal left perinephric loculated fluid collection. There is stable obstructing stone in the superior pole of the left kidney measuring 4 mm. There is also a 2 mm nonobstructing stone is recorded at the right kidney. So we continued the IV fluid, IV pain medication, and Flomax and her CT scan of the abdomen and pelvis without contrast showed that there was nonvisualization of previously noted left ureterovesical junction calculus. The patient is asymptomatic has no more pain. PHYSICAL EXAMINATION: GENERAL: When I examined her this evening, she looked well and was clearly in no apparent respiratory distress, pale, but no jaundice, cyanosis, or thyromegaly. No jugular distention. No limb edema. VITAL SIGNS: Her heart rate was 67, blood pressure 164/93, temperature was 98.2, respiratory rate was 18 and oxygen saturation was 97%. The rest of clinical examination is unremarkable. LABORATORY DATA: Her lab work showed a serum sodium 143, potassium 4, chloride 111, bicarbonate 27, anion gap of 5, BUN 14, creatinine 1.1, estimated GFR was 50 mL per minute. Her glucose was 93, calcium was 8.2, and phosphorus was 3.4. Her white cell count was 5900, hemoglobin 12.4, hematocrit 36.9, MCV 95, and platelet count of 140,000. FINAL DISCHARGE DIAGNOSES: Obstructing calculus in the distal left ureterovesical junction that has passed the hydroureteronephrosis has resolved. The patient has multiple other medical problems including hypertension, breast cancer diagnosed in 1999 treated with mastectomy and radiation treatment thyroid cancer treated with thyroidectomy. ACTIVITY: The patient was advised to follow with her primary care physician. I did check her intact PTH the results of which is still pending at the time of this dictation. SAJAN WATERMAN MD DR: ANGEL/elizabet JOB#: [id number] / [id number]
[2016-12-11] MEDS ORDERED: POLYETHYLENE GLYCOL 3350 17 GM PACKET. PO SCH (09:00)
== END 2016-12-10 18:38 | disposition home or self-care (01) | DRG 694 ==
LOC: ER 18:48 → 1 SOUTH 19:23 → UNDOADMIN 19:23 → ICU 19:23
PROVIDERS: ADMIT Internal Medicine; ATTEND Internal Medicine
DX: N13.0 Hydronephrosis with ureteropelvic junction obstruction (principal); I10 Essential (primary) hypertension; E86.0 Dehydration; Z80.0 Family history of malignant neoplasm of digestive organs; Z82.49 Family history of ischemic heart disease and other diseases of the circulatory system; Z85.3 Personal history of malignant neoplasm of breast; Z85.850 Personal history of malignant neoplasm of thyroid; Z92.3 Personal history of irradiation; Z88.5 Allergy status to narcotic agent; Z88.1 Allergy status to other antibiotic agents; Z88.8 Allergy status to other drugs, medicaments and biological substances; N13.2 Hydronephrosis with renal and ureteral calculous obstruction; Z90.11 Acquired absence of right breast and nipple
CPT/HCPCS: 36415; 74176; 80048; 80053; 83970; 84100; 85027; 96361; 96374; 96375; J1170; J2270; J2405; J2550; Q0163; 99285-25; J7030

== ENCOUNTER → 2017-02-18 | Outpatient (CLI) | payer OTHER ==
[~2017-02-18] MED LIST changes: +0.9 % SODIUM CHLORIDE 10 ML VIAL ONE; +BUPIVACAINE MPF 0.25% 10 ML VIAL. ONE; +DEXAMETHASONE SOD PHOS 4 MG/ML VIAL ONE; +IOHEXOL 300 MG/ML 50 ML VIAL. ONE; +LIDOCAINE 1% PF 30 ML VIAL. ONE
== END | disposition home or self-care (01) ==
LOC: SURG 11:45
PROVIDERS: ATTEND Anesthesiology Pain Medicine
DX: M54.16 Radiculopathy, lumbar region (principal); Z88.4 Allergy status to anesthetic agent
CPT/HCPCS: 64483; 64484; J1100; J2001; J3490; Q9967

== ENCOUNTER → 2017-03-25 | Outpatient (CLI) | payer OTHER ==
[~2017-03-25] MED LIST changes: -0.9 % SODIUM CHLORIDE 10 ML VIAL ONE
== END | disposition home or self-care (01) ==
LOC: SURG 10:06
PROVIDERS: ATTEND Anesthesiology Pain Medicine
DX: M54.16 Radiculopathy, lumbar region (principal); I10 Essential (primary) hypertension; M19.91 Primary osteoarthritis, unspecified site; Z72.89 Other problems related to lifestyle
CPT/HCPCS: 64483; 64484; J1100; J2001; J3490; Q9967

== ENCOUNTER → 2017-05-20 | Outpatient (CLI) | payer OTHER ==
[~2017-05-20] MED LIST changes: +0.9 % SODIUM CHLORIDE 10 ML VIAL ONE; -BUPIVACAINE MPF 0.25% 10 ML VIAL. ONE; -DEXAMETHASONE SOD PHOS 4 MG/ML VIAL ONE; +methylPREDNISolone ACETATE 40 MG/ML VIAL. ONE
== END | disposition home or self-care (01) ==
LOC: SURG 11:31
PROVIDERS: ATTEND Anesthesiology Pain Medicine
DX: M54.16 Radiculopathy, lumbar region (principal); I10 Essential (primary) hypertension; M19.90 Unspecified osteoarthritis, unspecified site; E07.9 Disorder of thyroid, unspecified; Z98.890 Other specified postprocedural states; Z86.39 Personal history of other endocrine, nutritional and metabolic disease; Z88.5 Allergy status to narcotic agent
CPT/HCPCS: 62323; J1030; J2001; Q9967

== ENCOUNTER 2018-09-04 10:05 | Emergency (ER) | payer OTHER ==
[~2018-09-04] VITALS: Ht 172.7 cm; Wt 78.0 kg
[~2018-09-04 10:05] MED LIST changes: -0.9 % SODIUM CHLORIDE 10 ML VIAL ONE; +HYDR-3165 PO; -HYDR-971 PO; -IOHEXOL 300 MG/ML 50 ML VIAL. ONE; -LIDOCAINE 1% PF 30 ML VIAL. ONE; -methylPREDNISolone ACETATE 40 MG/ML VIAL. ONE
[2018-09-04] MEDS ORDERED: KETOROLAC 30 MG/ML VIAL. IV ONE (10:30)
[2018-09-04] MEDS ORDERED: IV NORMAL SALINE 1,000ML 1,000 ML IV ONE (10:30)
[2018-09-04] MEDS ORDERED: ONDANSETRON PF 4 MG/2 ML VIAL. IV ONE (10:30)
[2018-09-04] MEDS ORDERED: MORPHINE SULFATE 4 MG/ML DISP.SYRIN. IV ONE (10:45)
--- NOTE | 2018-09-04 10:50 | PHYS DOC ---
Past History Past Medical History: Cancer, Hypertension Past Surgical History: Cancer Surgery, Other Alcohol Use: None Drug Use: None Adult General Chief Complaint Chief Complaint: FLANK PAIN HPI HPI 62-year-old female presents with right flank pain. The patient has chronic low back pain. She has had some cramping of this area recently. Last night, the patient did some stretching which aggravated her back little bit. She woke up this morning and the pain level was about the same. After the patient went to the restroom she had sudden onset of much more severe cramping pain in the right back and flank. This radiates around to the anterior side. There is some tenderness to palpation in this area. She was not doing anything difficult at the time of the onset of pain. She was just walking across the room. Pain continues to be 7 out of 10 at this time. Patient has a history of kidney stones about 2 years ago. She states the pain is similar. She did not have to have a stent or lithotripsy at that time. She was in the hospital for a few days for pain control, but then passed the stone. Patient denies dysuria or increased urinary frequency. She has not noticed hematuria. She denies fever or chills. Review of Systems Review of Systems Constitutional: Denies fever or chills [] Eyes: Denies change in visual acuity, redness, or eye pain [] HENT: Denies nasal congestion or sore throat [] Respiratory: Denies cough or shortness of breath [] Cardiovascular: No additional information not addressed in HPI [] GI: Denies abdominal pain, nausea, vomiting, bloody stools or diarrhea [] : Denies dysuria or hematuria [] Musculoskeletal: Right flank pain [] Integument: Denies rash or skin lesions [] Neurologic: Denies headache, focal weakness or sensory changes [] Endocrine: Denies polyuria or polydipsia [] All other systems were reviewed and found to be within normal limits, except as documented in this note. Current Medications Current Medications Current Medications Medications (Trade) Dose Ordered Sig/Cleve Start Time Stop Time Status Last Admin Dose Admin Ketorolac Tromethamine (Toradol 30mg Vial) 30 mg 1X ONCE 09/04/18 10:30 09/04/18 10:39 DC 09/04/18 10:41 30 MG Morphine Sulfate (Morphine 4mg Syringe) 4 mg 1X ONCE 09/04/18 10:45 09/04/18 10:46 DC 09/04/18 10:40 4 MG Ondansetron HCl (Zofran) 4 mg 1X ONCE 09/04/18 10:30 09/04/18 10:39 DC 09/04/18 10:40 4 MG Sodium Chloride 1,000 ml @ 1,000 mls/hr 1X ONCE 09/04/18 10:30 09/04/18 11:29 09/04/18 10:41 1,000 MLS/HR Allergies Allergies Allergies Coded Allergies Type Severity Reaction Last Updated Verified fentanyl Allergy Intermediate 12/09/16 Yes oxycodone Allergy Intermediate 12/09/16 Yes diphenhydramine Allergy Unknown 09/04/18 Yes Physical Exam Physical Exam Constitutional: Well developed, well nourished, no acute distress, non-toxic appearance. [] HENT: Normocephalic, atraumatic, bilateral external ears normal, oropharynx moist, no oral exudates, nose normal. [] Eyes: PERRLA, EOMI, conjunctiva normal, no discharge. [] Neck: Normal range of motion, no tenderness, supple, no stridor. [] Cardiovascular:Heart rate regular rhythm, no murmur [] Lungs & Thorax: Bilateral breath sounds clear to auscultation [] Abdomen: Bowel sounds normal, soft, no tenderness, no masses, no pulsatile masses. [] Skin: Warm, dry, no erythema, no rash. [] Back: No tenderness, Right CVA tenderness. [] Extremities: No tenderness, no cyanosis, no clubbing, ROM intact, no edema. [] Neurologic: Alert and oriented X 3, normal motor function, normal sensory function, no focal deficits noted. [] Psychologic: Affect normal, judgement normal, mood normal. [] Current Patient Data Vital Signs Vital Signs Date Time Temp Pulse Resp B/P (MAP) Pulse Ox O2 Delivery O2 Flow Rate FiO2 09/04/18 10:40 16 09/04/18 10:15 98.4 83 100 EKG EKG [] Radiology/Procedures Radiology/Procedures [] Impressions: CT Abdomen and Pelvis without contrast History: Right flank pain Technique: Noncontrast CT imaging was performed of the abdomen and pelvis. Multiplanar images are reviewed. Exposure: One or more of the following individualized dose reduction techniques were utilized for this examination: 1. Automated exposure control 2. Adjustment of the mA and/or kV according to patient size 3. Use of iterative reconstruction technique. Comparison: December 10, 2016 Findings: There is minimal atelectasis of the visualized lung bases bilaterally. Accurate evaluation of abdominal visceral organs is limited without intravenous contrast. There are a couple of hypodense foci of the lateral left lobe of the liver, largest about 1.1 cm, density measurements which may be seen with cysts. No obvious focal abnormality is identified of the pancreas or spleen. Gallbladder is present without obvious intraluminal abnormality by CT, somewhat distended appearance. There is no ureteral calculus on either side. There is a small 0.2 cm mid renal calculus, punctate mid right renal calculus, and 2 small mid pole left renal calculi with the largest 0.3 cm. There is a hypodense lesion of the anterior mid right kidney about 2.6 cm as seen previously, internal density measurements suggestive of cysts 11 Hounsfield units. Ureters are not dilated. There is again left pelvocaliectasis and possibly cysts of the left renal pelvis overall similar in appearance, somewhat increased density of the inferior right renal pelvis which may be a component of cysts and pelvocaliectasis. Accurate evaluation of bowel is limited without oral contrast. There is no significant bowel dilatation, free fluid free air. Appendix is not dilated although long segment hyperdensity present in the lumen, no adjacent inflammatory-type change. There is retained stool greater of the right and transverse colon. There are multiple nonspecific mesenteric nodes, largest on the left about 1 cm short axis dimension which is similar and largest on the right image 73 series 2 about 1.4 cm short axis dimension (previously 0.5 cm). There is grade 1 anterior spondylolisthesis L4-5 at which there is facet degenerative change. There is degenerative disc disease greatest at L1-2. Impression: 1. There are small nonobstructive bilateral renal calculi. There is again degree of pelvocaliectasis of the bilateral kidneys, possible cysts of the renal hilar regions. There is again right renal cyst. Ureters are not dilated. 2. There is again long segment hyperdensity in the appendiceal lumen likely component appendicolith, no CT findings suggestive of acute appendicitis. 3. There are multiple nonspecific mesenteric nodes, some of which are enlarged although in part present on previous 2017 exam, largest node on the right larger than that exam although largest node on the left more similar. Continued surveillance such as in 4-6 months may be beneficial due to uncertain etiology. 4. There is retained stool greater of the right and transverse colon. Electronically signed by: Surjit Roque MD (09/04/2018 11:44 AM) [id number] DICTATED AND SIGNED BY: SURJIT ROQUE MD DATE: 09/04/18 1144 CC: GLENN HUNT DO; SIN MORTENSEN MD ~ Course & Med Decision Making Course & Med Decision Making Pertinent Labs and Imaging studies reviewed. (See chart for details) The patient was given 1 L normal saline, 4 mg of Zofran, 4 mg of morphine, and 30 mg of Toradol for her pain. This helped significantly. The patient's CT scan shows hydronephrosis of the kidney, but not the ureters. There are no obstruct ing stones seen. See official report for details. Her labs are unremarkable though her BUN to creatinine ratio suggests some dehydration. Her creatinine is normal. At this time, I will discharge the patient on Villanueva 5/320 5K she has further pain. I will advise that she follow up with her PCP and a medical office technician. She is stable for discharge at this time. [] Dragon Disclaimer Dragon Disclaimer This electronic medical record was generated, in whole or in part, using a voice recognition dictation system. Departure Departure: Impression: Primary Impression: Right flank pain Additional Impression: Renal cyst Disposition: 01 HOME, SELF-CARE Condition: STABLE Referrals: SIN MORTENSEN MD (PCP) Patient Instructions: Flank Pain, [id number] Additional Instructions: Please follow-up with your primary care physician and to consider a nephrology consult. Scripts Ondansetron (ONDANSETRON ODT) 4 Mg Tab.rapdis 1 TAB PO PRN Q6-8HRS PRN for VOMITING, #16 TAB Prov: GLENN HUNT DO 09/04/18 Hydrocodone Bit/Acetaminophen (NORCO 5-325 TABLET) 1 Each Tablet 1 TAB PO PRN Q6HRS PRN for PAIN, #14 TAB 0 Refills Prov: GLENN HUNT DO 09/04/18 Problem Qualifiers GLENN HUNT DO Sep 04, 2018 10:50
[2018-09-04 11:06] LABS: BASO % 0 % (0-3); EOS # 0.1 x10^3/uL (0.0-0.7); EOS % 2 % (0-3); HEMATOCRIT 48.5 % (36.0-47.0); HEMOGLOBIN 15.6 g/dL (12.0-15.5); LYMPH # 1.1 x10^3/uL (1.0-4.8); LYMPH % 25 % (24-48); MEAN CORPUSCULAR HEMOGLOBIN 32 pg (25-35); MEAN CORPUSCULAR HGB CONC 32 g/dL (31-37); MEAN CORPUSCULAR VOLUME 98 fL (79-100); MONO # 0.4 x10^3/uL (0.0-1.1); MONO % 9 % (0-9); NEUT # 2.8 x10^3uL (1.8-7.7); NEUT % 64 % (31-73); PLATELET COUNT 173 x10^3/uL (140-400); RED BLOOD COUNT 4.95 x10^6/uL (3.50-5.40); RED CELL DISTRIBUTION WIDTH 13.6 % (11.5-14.5); WHITE BLOOD COUNT 4.3 x10^3/uL (4.0-11.0)
[2018-09-04 11:14] LABS: ALBUMIN 3.4 g/dL (3.4-5.0); ALBUMIN/GLOBULIN RATIO 0.9 (1.0-1.7); CALCIUM 8.9 mg/dL (8.5-10.1); CREATININE 0.7 mg/dL (0.6-1.0); GFR 84.2; POTASSIUM 4.4 mmol/L (3.5-5.1); TOTAL BILIRUBIN 0.3 mg/dL (0.2-1.0); TOTAL PROTEIN 7.2 g/dL (6.4-8.2)
--- NOTE | 2018-09-04 11:47 | RAD ---
CT Abdomen and Pelvis without contrast History: Right flank pain Technique: Noncontrast CT imaging was performed of the abdomen and pelvis. Multiplanar images are reviewed. Exposure: One or more of the following individualized dose reduction techniques were utilized for this examination: 1. Automated exposure control 2. Adjustment of the mA and/or kV according to patient size 3. Use of iterative reconstruction technique. Comparison: December 10, 2016 Findings: There is minimal atelectasis of the visualized lung bases bilaterally. Accurate evaluation of abdominal visceral organs is limited without intravenous contrast. There are a couple of hypodense foci of the lateral left lobe of the liver, largest about 1.1 cm, density measurements which may be seen with cysts. No obvious focal abnormality is identified of the pancreas or spleen. Gallbladder is present without obvious intraluminal abnormality by CT, somewhat distended appearance. There is no ureteral calculus on either side. There is a small 0.2 cm mid renal calculus, punctate mid right renal calculus, and 2 small mid pole left renal calculi with the largest 0.3 cm. There is a hypodense lesion of the anterior mid right kidney about 2.6 cm as seen previously, internal density measurements suggestive of cysts 11 Hounsfield units. Ureters are not dilated. There is again left pelvocaliectasis and possibly cysts of the left renal pelvis overall similar in appearance, somewhat increased density of the inferior right renal pelvis which may be a component of cysts and pelvocaliectasis. Accurate evaluation of bowel is limited without oral contrast. There is no significant bowel dilatation, free fluid free air. Appendix is not dilated although long segment hyperdensity present in the lumen, no adjacent inflammatory-type change. There is retained stool greater of the right and transverse colon. There are multiple nonspecific mesenteric nodes, largest on the left about 1 cm short axis dimension which is similar and largest on the right image 73 series 2 about 1.4 cm short axis dimension (previously 0.5 cm). There is grade 1 anterior spondylolisthesis L4-5 at which there is facet degenerative change. There is degenerative disc disease greatest at L1-2. Impression: 1. There are small nonobstructive bilateral renal calculi. There is again degree of pelvocaliectasis of the bilateral kidneys, possible cysts of the renal hilar regions. There is again right renal cyst. Ureters are not dilated. 2. There is again long segment hyperdensity in the appendiceal lumen likely component appendicolith, no CT findings suggestive of acute appendicitis. 3. There are multiple nonspecific mesenteric nodes, some of which are enlarged although in part present on previous 2017 exam, largest node on the right larger than that exam although largest node on the left more similar. Continued surveillance such as in 4-6 months may be beneficial due to uncertain etiology. 4. There is retained stool greater of the right and transverse colon. Electronically signed by: Roly Corona MD (09/04/2018 11:44 AM) [facility]
[2018-09-04 11:50] LABS: BACTERIA,URINE FEW /HPF (0-FEW); BILIRUBIN,URINE NEG (NEG); CLARITY,URINE HAZY; COLOR,URINE STRAW; GLUCOSE,URINE NEG (NEG); NITRITE,URINE NEG (NEG); RBC,URINE OCC /HPF (0-2); SQUAMOUS EPITHELIAL CELL,UR FEW /LPF; UROBILINOGEN,URINE 0.2 mg/dL (0.2 mg/dL); WBC,URINE OCC /HPF (0-4)
[2018-09-04 12:00] VITALS: BP 156/87
[2018-09-04] MEDS ORDERED: HYDR-3165 PO (12:05)
[2018-09-04] MEDS ORDERED: ONDA4TAB12 PO (12:21)
== END 2018-09-04 12:20 | disposition home or self-care (01) ==
LOC: ER 10:05
DX: N13.2 Hydronephrosis with renal and ureteral calculous obstruction (principal); G89.29 Other chronic pain; M54.5 Low back pain; I10 Essential (primary) hypertension; Z88.8 Allergy status to other drugs, medicaments and biological substances; Z88.5 Allergy status to narcotic agent
CPT/HCPCS: 36415; 74176; 80053; 81001; 85025; 96374; 96375; 99285; J1885; J2270; J2405; J7030

== ENCOUNTER → 2019-02-07 | Outpatient (CLI) | payer MEDICARE, OTHER ==
[~2019-02-07] MED LIST changes: +ONDA4TAB12 PO
--- NOTE | 2019-02-07 12:38 | RAD ---
CT HEAD WO CONTRAST History: Numbness and tingling in arms and legs bilaterally, visual disturbance Comparison: None. Technique: Noncontrast CT imaging was performed of the head. Exposure: One or more of the following individualized dose reduction techniques were utilized for this examination: 1. Automated exposure control 2. Adjustment of the mA and/or kV according to patient size 3. Use of iterative reconstruction technique. Findings: No acute extra-axial or parenchymal hemorrhage is identified. There is no significant intra-axial mass effect, midline shift, or extra-axial fluid collection. The gonzalez-white differentiation of the major vascular territories is preserved. The ventricles, sulci, and cisterns are within normal limits in size and configuration. The mastoid air cells and the visualized paranasal sinuses are mostly aerated other than likely mucus retention cyst of the posterior left sphenoid sinus about 1.3 cm. No acute calvarial abnormality is identified. Impression: 1. No acute intracranial abnormality is identified. Electronically signed by: Roly Corona MD (02/07/2019 12:35 PM) [id number]
== END | disposition home or self-care (01) ==
LOC: CT 12:19
PROVIDERS: ATTEND Family Medicine
DX: R53.1 Weakness (principal); H53.9 Unspecified visual disturbance; R20.2 Paresthesia of skin; R20.0 Anesthesia of skin
CPT/HCPCS: 70450

== ENCOUNTER → 2019-02-09 | Outpatient (CLI) | payer MEDICARE, OTHER ==
[~2019-02-09] MED LIST changes: +IOHEXOL 350 MG/ML 100 ML VIAL. IV ONE
--- NOTE | 2019-02-09 18:36 | RAD ---
Exam: CT of chest with contrast INDICATION: Elevated d-dimer TECHNIQUE: Sequential axial images through the chest obtained following the administration of 75 mL of Isovue-370 IV contrast. Sagittal and coronal reformatted images were reconstructed from the axial data and reviewed. 3-D reformatted images were reconstructed from the axial data and reviewed. Comparisons: None FINDINGS: No enlarged mediastinal lymph nodes are identified. Heart size is normal. No pericardial effusion. Thoracic aorta has a normal course and caliber. Pulmonary artery is not enlarged. No pulmonary embolus identified within the main, lobar or segmental pulmonary arteries. Airways are patent. No consolidation or pneumothorax. Strandy opacities within the dependent portion of the lung bases likely representing atelectasis. No pleural effusion or thickening. 7 mm nodule at the left lung base series 4 image 106. Visualized upper abdomen is unremarkable. No suspicious osseous lesions or acute fractures. IMPRESSION: 1. No pulmonary embolus identified within the main, lobar or segmental pulmonary arteries. 2. A 7 mm nodule in the left lower lobe. 6 month follow-up CT is recommended. Exposure: One or more of the following in the visualized dose reduction techniques were utilized for this examination: 1. Automated exposure control 2. Adjustment of the MA and/or KV according to patient size 3. Use of iterative of reconstructive technique Electronically signed by: Larry Stoll MD (02/09/2019 6:33 PM) [facility]
== END | disposition home or self-care (01) ==
LOC: CT 17:52
PROVIDERS: ATTEND Family Medicine
DX: I26.99 Other pulmonary embolism without acute cor pulmonale (principal); R91.1 Solitary pulmonary nodule
CPT/HCPCS: 71275; Q9967

== ENCOUNTER 2019-12-30 09:54 | Emergency (ER) | payer MEDICARE, OTHER ==
[~2019-12-30] VITALS: Ht 172.7 cm; Wt 86.3 kg
[~2019-12-30 09:54] MED LIST changes: -IOHEXOL 350 MG/ML 100 ML VIAL. IV ONE
[2019-12-30 10:05] VITALS: BP 142/90
--- NOTE | 2019-12-30 10:41 | PHYS DOC ---
Past History Past Medical History: Cancer, Hypertension, Hypothyroid Past Surgical History: Cancer Surgery, Hysterectomy, Other Additional Past Surgical Histo: THYROID, BACK, RIGHT LARGE TOE Alcohol Use: None Drug Use: None General Adult EDM: Chief Complaint: WOUND CHECK HPI: HPI: 64-year-old female presents with reopening of a sutured wound. The patient had a mole and an underlying cyst removed from her back. It was repaired with granda tures. These were taken out a couple of days ago. The patient was getting dressed this morning and discovered that the wound had opened back up. She decided to come in for evaluation and suturing if necessary. It is not painful. She denies fever chills. She has no other complaints. Review of Systems: Review of Systems: Constitutional: Denies fever or chills Eyes: Denies change in visual acuity HENT: Denies nasal congestion or sore throat Respiratory: Denies cough or shortness of breath Cardiovascular: Denies chest pain or edema GI: Denies abdominal pain, nausea, vomiting, bloody stools or diarrhea : Denies dysuria Musculoskeletal: Denies back pain or joint pain Integument: Wound dehiscence Neurologic: Denies headache, focal weakness or sensory changes Endocrine: Denies polyuria or polydipsia Lymphatic: Denies swollen glands Psychiatric: Denies depression or anxiety Heart Score: Risk Factors: Risk Factors: DM, Current or recent (<one month) smoker, HTN, HLP, family history of CAD, obesity. Risk Scores: Score 0 - 3: 2.5% MACE over next 6 weeks - Discharge Home Score 4 - 6: 20.3% MACE over next 6 weeks - Admit for Clinical Observation Score 7 - 10: 72.7% MACE over next 6 weeks - Early Invasive Strategies Allergies: Allergies: Allergies Coded Allergies Type Severity Reaction Last Updated Verified fentanyl Allergy Intermediate 12/09/16 Yes oxycodone Allergy Intermediate 12/09/16 Yes diphenhydramine Allergy Unknown 09/04/18 Yes Physical Exam: PE: Constitutional: Well developed, well nourished, no acute distress, non-toxic appearance. [] HENT: Normocephalic, atraumatic, bilateral external ears normal, oropharynx moist, no oral exudates, nose normal. [] Eyes: PERRLA, EOMI, conjunctiva normal, no discharge. [] Neck: Normal range of motion, no tenderness, supple, no stridor. [] Cardiovascular:Heart rate regular rhythm, no murmur [] Lungs & Thorax: Bilateral breath sounds clear to auscultation [] Abdomen: Bowel sounds normal, soft, no tenderness, no masses, no pulsatile masses. [] Skin: 2 cm open wound left upper back.. [] Back: No tenderness, no CVA tenderness. [] Extremities: No tenderness, no cyanosis, no clubbing, ROM intact, no edema. [] Neurologic: Alert and oriented X 3, normal motor function, normal sensory function, no focal deficits noted. [] Psychologic: Affect normal, judgement normal, mood normal. [] Current Patient Data: Vital Signs: Vital Signs Date Time Temp Pulse Resp B/P (MAP) Pulse Ox O2 Delivery O2 Flow Rate FiO2 12/30/19 10:05 98.1 63 16 142/90 (107) 97 Room Air EKG: EKG: [] Radiology/Procedures: Radiology/Procedures: [] Course & Med Decision Making: Course & Med Decision Making Pertinent Labs and Imaging studies reviewed. (See chart for details) The patient's wound appeared clean and had good epithelialization. It just appeared to have reopened. I closed it with sutures. See note below for more details. I do not believe antibiotics are necessary. Patient is stable for discharge at this time. [] Dragon Disclaimer: Dragon Disclaimer: This electronic medical record was generated, in whole or in part, using a voice recognition dictation system. Laceration Repair Lac Repair Indication: [] 2 cm wound dehiscence left upper back. Procedure: I obtained verbal consent from the patient for re-repair of her wound. The wound was anesthetized with 1% lidocaine with epinephrine. 2 cc was used. After good anesthesia was achieved, I repaired the wound with 3-0 Ethilon suture. There were 3 sutures in an interrupted fashion. There was good skin approximation. Bleeding was controlled. I covered the area with a large Band-Aid. Total repaired wound length: 2 cm Other Items: None The patient tolerated the procedure well. Complications: [None Departure Departure: Impression: Primary Impression: Wound dehiscence Disposition: 01 HOME/RESIDENCE PRIOR TO ADM Condition: IMPROVED Referrals: MARCIE DAI MD (PCP) Patient Instructions: Sutured Wound Care, [id number] Additional Instructions: Please leave the sutures in for 10 to 14 days. You can follow-up with your primary care physician for removal. Justification of Admission: Justification of Admission: Justification of Admission Dx: N/A GLENN HUNT DO Dec 30, 2019 10:41
== END 2019-12-30 10:45 | disposition home or self-care (01) ==
LOC: ER 09:54
DX: T81.31XA Disruption of external operation (surgical) wound, not elsewhere classified, initial encounter (principal); I10 Essential (primary) hypertension; E03.9 Hypothyroidism, unspecified; Z88.5 Allergy status to narcotic agent; Z88.8 Allergy status to other drugs, medicaments and biological substances
CPT/HCPCS: 12020; 99283

== ENCOUNTER 2020-11-29 16:08 | Emergency (ER) | payer MEDICARE, OTHER ==
[~2020-11-29] VITALS: Ht 172.7 cm; Wt 87.3 kg
[~2020-11-29 16:08] MED LIST changes: -CYAN50008 PO; +CYAN50009 PO; +LISI10TA16 PO; -LISI10TA2 PO
[2020-11-29 17:00] VITALS: BP 141/96
[2020-11-29] MEDS ORDERED: ACETAMINOPHEN 500 MG TABLET PO ONE (18:00)
--- NOTE | 2020-11-29 18:47 | RAD ---
Exam: CT head and cervical spine INDICATION: Fall TECHNIQUE: Sequential axial images through the head and cervical spine were obtained without the admi nistration of IV contrast. Exposure: One or more of the following in the visualized dose reduction techniques were utilized for this examination: 1. Automated exposure control 2. Adjustment of the MA and/or KV according to patient size 3. Use of iterative of reconstructive technique Comparisons: None FINDINGS: Head: No focal parenchymal lesion or hemorrhage is identified. There is no midline shift or sulcal effaceme nt. No acute vascular territory infarction is identified. Du-white distinction is preserved. The ventricular system is within normal limits without compression hydrocephalus. The basal cisterns are well maintained. The visualized portions of the paranasal sinuses and mastoid air cells are well-pneumatized. No acute fractures. Cervical spine: Vertebral body heights and alignment are well-maintained. Fracture to the cervical spine is not identified. Mild multilevel spondylotic change in cervical spine with degenerative disease greatest at C4-C5 and C5-C6. Visualized paraspinal soft tissues are unremarkable. IMPRESSION: 1. No acute intracranial abnormality. 2. Negative CT C-spine for acute traumatic injury. Electronically signed by: Larry Stoll MD (11/29/2020 6:44 PM) [facility]
--- NOTE | 2020-11-29 19:18 | PHYS DOC ---
Past History Past Medical History: Cancer, Hypertension, Hypothyroid (GAYLE WHEATLEY APRN) Past Surgical History: Cancer Surgery, Hysterectomy, Other Additional Past Surgical Histo: THYROID, BACK, RIGHT LARGE TOE (GAYLE WHEATLEY APRN) Alcohol Use: None Drug Use: None (GAYLE WHEATLEY APRN) General Adult EDM: Chief Complaint: MECHANICAL FALL HPI: HPI: Patient is a 64-year-old female who presents after a fall. Patient states "I was testing out a transfer chair I had bought for my mom when I fell completely backwards out of the chair". Denies loss of consciousness. Denies blood thinners. Patient is complaining of right-sided neck pain, right hip pain, right ribs. Patient reports taking Aleve prior to arrival. (GAYLE WHEATLEY APRN) Review of Systems: Review of Systems: Constitutional: Denies fever or chills Eyes: Denies change in visual acuity HENT: Denies nasal congestion or sore throat Respiratory: Denies cough or shortness of breath Cardiovascular: Denies chest pain or edema GI: Denies abdominal pain, nausea, vomiting, bloody stools or diarrhea : Denies dysuria Musculoskeletal: Reports neck pain, right side Integument: Denies rash Neurologic: Denies headache, focal weakness or sensory changes Endocrine: Denies polyuria or polydipsia Lymphatic: Denies swollen glands Psychiatric: Denies depression or anxiety (GAYLE WHEATLEY APRN) Current Medications: Current Meds: Current Medications Medications (Trade) Dose Ordered Sig/Cleve Start Time Stop Time Status Last Admin Dose Admin Acetaminophen (Tylenol) 500 mg 1X ONCE 11/29/20 18:00 11/29/20 18:04 DC 11/29/20 18:35 500 MG (GAYLE WHEATLEY APRN) Allergies: Allergies: Allergies Coded Allergies Type Severity Reaction Last Updated Verified fentanyl Allergy Intermediate 12/09/16 Yes oxycodone Allergy Intermediate 12/09/16 Yes Sulfa (Sulfonamide Antibiotics) Allergy Unknown 11/29/20 Yes diphenhydramine Allergy Unknown 09/04/18 Yes (GAYLE WHEATLEY APRN) Physical Exam: PE: Constitutional: Well developed, well nourished, no acute distress, non-toxic appearance. [] HENT: Normocephalic, atraumatic, bilateral external ears normal, oropharynx moist, no oral exudates, nose normal. [] Eyes: PERRLA, EOMI, conjunctiva normal, no discharge. [] Neck: Normal range of motion, no tenderness, supple, no stridor. [] Cardiovascular:Heart rate regular rhythm, no murmur [] Lungs & Thorax: Bilateral breath sounds clear to auscultation [] Abdomen: Bowel sounds normal, soft, no tenderness, no masses, no pulsatile masses. [] Skin: Warm, dry, no erythema, no rash. [] Back: No tenderness, no CVA tenderness. [] Extremities: No tenderness, no cyanosis, no clubbing, ROM intact, no edema. [] Neurologic: Alert and oriented X 3, normal motor function, normal sensory function, no focal deficits noted. [] Psychologic: Affect normal, judgement normal, mood normal. [] (GAYLE WHEATLEY APRN) EKG: EKG: [] (GAYLE WHEATLEY APRN) Radiology/Procedures: Radiology/Procedures: []Exam: CT head and cervical spine INDICATION: Fall TECHNIQUE: Sequential axial images through the head and cervical spine were obtained without the administration of IV contrast. Exposure: One or more of the following in the visualized dose reduction techniques were utilized for this examination: 1. Automated exposure control 2. Adjustment of the MA and/or KV according to patient size 3. Use of iterative of reconstructive technique Comparisons: None FINDINGS: Head: No focal parenchymal lesion or hemorrhage is identified. There is no midline shift or sulcal effacement. No acute vascular territory infarction is identified. Du-white distinction is preserved. The ventricular system is within normal limits without compression hydrocephalus. The basal cisterns are well maintained. The visualized portions of the paranasal sinuses and mastoid air cells are well- pneumatized. No acute fractures. Cervical spine: Vertebral body heights and alignment are well-maintained. Fracture to the cervical spine is not identified. Mild multilevel spondylotic change in cervical spine with degenerative disease greatest at C4-C5 and C5-C6. Visualized paraspinal soft tissues are unremarkable. IMPRESSION: 1. No acute intracranial abnormality. 2. Negative CT C-spine for acute traumatic injury. Electronically signed by: Larry Stoll MD (11/29/2020 6:44 PM) [facility] Exam: Right RIBS 2 views INDICATION: Fall TECHNIQUE: Frontal and oblique views of the right rib Comparisons: None FINDINGS: No displaced rib fractures identified. Visualized soft tissues are unremarkable IMPRESSION: No displaced right fractures identified Electronically signed by: Larry Stoll MD (11/29/2020 7:29 PM) [facility] Exam: Pelvis with right hip 2 views INDICATION: Fall TECHNIQUE: Frontal view of the pelvis with frontal and frog-leg lateral views of the right hip Comparisons: None FINDINGS: Bone mineralization is normal. No acute or healed fractures. Soft tissues are unremarkable. Joint spaces are well-maintained. IMPRESSION: No acute osseous abnormality identified. Electronically signed by: Larry Stoll MD (11/29/2020 7:27 PM) [facility] (GAYLE WHEATLEY APRN) Heart Score: C/O Chest Pain: No Risk Factors: Risk Factors: DM, Current or recent (<one month) smoker, HTN, HLP, family history of CAD, obesity. Risk Scores: Score 0 - 3: 2.5% MACE over next 6 weeks - Discharge Home Score 4 - 6: 20.3% MACE over next 6 weeks - Admit for Clinical Observation Score 7 - 10: 72.7% MACE over next 6 weeks - Early Invasive Strategies (GAYLE WHEATLEY APRN) Course & Med Decision Making: Course & Med Decision Making Pertinent Labs and Imaging studies reviewed. (See chart for details) [] 64-year-old female presents after falling out of a transfer chair. Patient states that she fell backwards. Patient complains of right sided hip, neck, rib pain. Patient given Tylenol for discomfort. CT head and cervical spine negative for acute abnormality. Right hip and pelvis negative for fracture. Right sided rib x-ray negative for fracture. Informed patient of radiology results. Explained to patient she can take Tylenol at home for discomfort. Patient to follow-up with PCP on Tuesday. Patient given strict return precautions. (GAYLE WHEATLEY APRN) Course & Med Decision Making Did not see or evaluate patient. Agree with [facility]'s work-up and disposition per note. (RAVI GOMEZ MD) Dragon Disclaimer: Nubia Disclaimer: This electronic medical record was generated, in whole or in part, using a voice recognition dictation system. (GAYLE WHEATLEY APRN) Departure Departure: Impression: Primary Impression: Fall Qualified Codes: W19.XXXA - Unspecified fall, initial encounter Disposition: HOME / SELF CARE / HOMELESS Condition: STABLE Referrals: MARCIE DAI MD (PCP) Patient Instructions: Fall Prevention and Home Safety, [id number] Additional Instructions: You were seen in the emergency room after a fall. CT of your head neck, ribs, pelvis and hip were all negative for any abnormalities. You may be sore for the next couple of days. Tylenol and ibuprofen for discomfort. Please make a follow-up with your PCP Tuesday. Return to the emergency room if you have worsening symptoms or concerns. EMERGENCY DEPARTMENT GENERAL DISCHARGE INSTRUCTIONS Thank you for coming to [facility] (ED) today and trusting us with you care. We trust that you had a positivie experience in our Emergency Department. If you wish to speak to the department management, you may call the director at . YOUR FOLLOW UP INSTRUCTIONS ARE FOLLOWS: 1. Do you have a private Doctor? If you do not have a private doctor, please ask for a resource list of physicians or clinics that may be able to assist you with follow up care. 2. The Emergency Physician has interpreted your x-rays. The X-Ray specialist will also review them. If there is a change in the findings, you will be notified in 48 hours when at all possible. 3. A lab test or culture has been done, your results will be reviewed and you will be notified if you need a change in treatment. ADDITIONAL INSTRUCTIONS AND INFORMATION: 1. Your care today has been supervised by a physician who is specially trained in emergency care. Many problems require more than one evaluation for a complete diagnosis and treatment. We recommend that you schedule your follow up appointment as recommended to ensure complete treatment of you illness or injury. If you are unable to obtain follow up care and continue to have a problem, or if your condition worsens, we recommend that you return to the ED. 2. We are not able to safely determine your condition over the phone nor are we able to give sound medical advice over the phone. For these safety reasons, if you call for medical advice we will ask you to come to the ED for further evaluation. 3. If you have any questions regarding these discharge instructions please call the ED at [phone]. SAFETY INFORMATION: In the interest of safety, wellness, and injury prevention; we encourage you to wear your sealbelt, if you smoke; quite smoking, and we encourage family to use a protective helmet for bicycling and other sporting events that present an increased risk for head injury. IF YOUR SYMPTOMS WORSEN OR NEW SYMPTOMS DEVELOP, OR YOU HAVE CONCERNS ABOUT YOUR CONDITION; OR IF YOUR CONDITION WORSENS WHILE YOU ARE WAITING FOR YOUR FOLLOW UP APPOINTMENT; EITHER CONTACT YOUR PRIMARY CARE DOCTOR, THE PHYSICIAN WHOSE NAME AND NUMBER YOU WERE GIVEN, OR RETURN TO THE ED IMMEDIATELY. GAYLE WHEATLEY APRN Nov 29, 2020 19:18 RAVI GOMEZ MD Nov 29, 2020 23:28
--- NOTE | 2020-11-29 19:30 | RAD ---
Exam: Pelvis with right hip 2 views INDICATION: Fall TECHNIQUE: Frontal view of the pelvis with frontal and frog-leg lateral views of the right hip Comparisons: None FINDINGS: Bone mineralization is normal. No acute or healed fractures. Soft tissues are unremarkable. Joint spa sarah are well-maintained. IMPRESSION: No acute osseous abnormality identified. Electronically signed by: Larry Stoll MD (11/29/2020 7:27 PM) [facility]
--- NOTE | 2020-11-29 19:32 | RAD ---
Exam: Right RIBS 2 views INDICATION: Fall TECHNIQUE: Frontal and oblique views of the right rib Comparisons: None FINDINGS: No displaced rib fractures identified. Visualized soft tissues are unremarkable IMPRESSION: No displaced right fractures identified Electronically signed by: Larry Stoll MD (11/29/2020 7:29 PM) [facility]
== END 2020-11-29 20:06 | disposition home or self-care (01) ==
LOC: ER 16:08
DX: M54.2 Cervicalgia (principal); M25.551 Pain in right hip; I10 Essential (primary) hypertension; Z90.710 Acquired absence of both cervix and uterus; Z88.5 Allergy status to narcotic agent; Z88.8 Allergy status to other drugs, medicaments and biological substances; Z88.2 Allergy status to sulfonamides
CPT/HCPCS: 70450; 71100; 72125; 73502; 99285-25